=== PATIENT | female | born 1945 | race Caucasian/White ===

== ENCOUNTER 2023-11-24 17:06 | Emergency (ER) | payer MEDICARE, OTHER, SELFPAY ==
[2023-11-24 17:20] VITALS: BP 145/79; PULSE 74; RESP 18; TEMP 37.1; O2SAT 96; BMI 31.4
--- NOTE | 2023-11-24 17:26 | ED_ITS ---
HPI - General Adult General Chief complaint: Back Injury/Pain Stated complaint: lower back pain Time Seen by Provider: 11/24/23 17:19 History of Present Illness HPI narrative: Sunday pt had a fall and hit the door frame to her bathroom . Did not hit her head, no LOC. Slid down the wall gently onto her bottom. Pt reports bruise to RIGHT upper back. States pain wraps from back to side. Saw her chiropractor . Had increased pain when she got up yesterday. Reports chiropractor is concerned about rib fx. Pt states she wonders if it is her gallbladder or kidney. 78-year-old woman presenting to the emergency department 4 days after a slip- down fall. There was no loss of consciousness. She has managed to injure her upper back. Two days ago chiropractor was worried about a potential rib fracture. She is worried about maybe a gallbladder or kidney injury. Is not really short of breath, not pleuritic. Pain does wrap around the back to her side. No hematuria. Related Data Home Medications ?Medication ?Instructions ?Recorded ?Confirmed 5-hydroxytryptophan (5-HTP) PO 01/13/22 01/13/22 ascorbic acid (vitamin C) 250 mg 1 g PO Q6H 01/13/22 11/24/23 tablet calcium tab PO QDAY 01/13/22 01/13/22 carbonate,citrate-magnesium oxide 200 mg calcium-50 mg tablet multivitamin (Multiple Vitamins 1 tab PO QAM 01/13/22 11/24/23 tablet) Previous Rx's ?Medication ?Instructions ?Recorded lidocaine 4 % topical patch 1 patch topical DAILY PRN pain #15 11/24/23 ea Allergies Allergy/AdvReac Type Severity Reaction Status Date / Time codeine Allergy Mild Verified 11/24/23 17:07 penicillin V Allergy Mild Verified 11/24/23 17:07 HUCKEL BERRIES Allergy Mild Uncoded 01/13/22 09:38 Review of Systems Status of ROS: Reports: 6 or more systems reviewed and unremarkable except as noted in History and below [facility] Medical History Cataracts, bilateral ?H26.9 - Unspecified cataract (ICD-10) Depression ?F32.A - Depression, unspecified (ICD-10) Back pain ?M54.9 - Dorsalgia, unspecified (ICD-10) Osteoarthritis ?M19.90 - Unspecified osteoarthritis, unspecified site (ICD-10) Reflux esophagitis ?K21.00 - Gastro-esophageal reflux disease with esophagitis, without bleeding (ICD-10) Cataract (lens) fragments in eye following cataract surgery ?H59.029 - Cataract (lens) fragments in eye following cataract surgery, unspecified eye (ICD-10) Cataract ?H26.9 - Unspecified cataract (ICD-10) Surgical History (Updated 01/13/22 @ 10:20 by Joann Mayberry ~ [facility], [facility]) Knee joint replacement status ?Z96.659 - Presence of unspecified artificial knee joint (ICD-10) Hip joint replacement status ?Z96.649 - Presence of unspecified artificial hip joint (ICD-10) H/O colectomy ?Z90.49 - Acquired absence of other specified parts of digestive tract (ICD- 10) History of appendectomy ?Z90.49 - Acquired absence of other specified parts of digestive tract (ICD- 10) H/O removal of cyst ?Z98.890 - Other specified postprocedural states (ICD-10) Social History Smoking Status: Never smoker Do you use any of these nicotine containing products: None Second hand tobacco smoke exposure: No How often do you have a drink containing alcohol: never AUDIT-C Alcohol total score: 0 Non-prescribed substance use: denies use service: No Exam Narrative: Exam Narrative: Pleasant. Seems uncomfortable with transition. Breathing easily. Head is atraumatic. Neck is supple. Midline back nontender. Breath sounds throughout with equal expansion excursion of the chest pain Small bruising in the right chest and some dependent drift. Sore to palpation over the right mid thorax. No crepitus or deformity. Not tender to oppositional compression. Abdomen is soft and nontender. Const: Vital Signs, click to edit/add: Vital Signs - 24 hr 11/24/23 17:20 Temperature 98.8 F Pulse Rate [Pulse Oximeter] 74 Respiratory Rate 18 Blood Pressure [Ri ght Upper Arm] 145/79 H Pulse Oximetry 96 Oxygen Delivery Me thod Room Air Documenting provider has reviewed patient's vital signs: yes Course Vital Signs Vital signs: Initial Vital Signs Temperature 98.8 F 11/24/23 17:20 Temperature Source Temporal Artery Scan 11/24/23 17:20 Pulse Rate 74 11/24/23 17:20 Pulse Rhythm Regular 11/24/23 17:20 Pulse Strength 3+ Normal 11/24/23 17:20 Respiratory Rate 18 11/24/23 17:20 Blood Pressure 145/79 H 11/24/23 17:20 Blood Pressure Mean 101 11/24/23 17:20 Blood Pressure Position Sitting 11/24/23 17:20 Pulse Oximetry 96 11/24/23 17:20 Oxygen Delivery Method Room Air 11/24/23 17:20 Vital Signs Temperature 98.8 F 11/24/23 17:20 Pulse Rate 74 11/24/23 17:20 Respiratory Rate 18 11/24/23 17:20 Blood Pressure 145/79 H 11/24/23 17:20 Pulse Oximetry 96 11/24/23 17:20 Oxygen Delivery Method Room Air 11/24/23 17:20 Temperature 98.8 F 11/24/23 17:20 Pulse Rate 74 11/24/23 17:20 Respiratory Rate 18 11/24/23 17:20 Blood Pressure 145/79 H 11/24/23 17:20 Pulse Oximetry 96 11/24/23 17:20 Oxygen Delivery Method Room Air 11/24/23 17:20 Medications Administered Medications: Discontinued Medications Generic Name Dose Route Start Last Admin Trade Name Freq PRN Reason Stop Dose Admin Lidocaine 1 patch 11/24/23 17:44 11/24/23 18:05 Lidocaine 5% Patch TRANSDERMA 11/24/23 17:45 1 patch ONCE ONE Administration Protocol Medical Decision Making MDM Narrative Medical decision making narrative: Will image the right chest. Collect urinalysis to see if there might potentially be a secondary urinary tract infection or any indication of renal contusion but not having that degree of pain. I do not think there is a gallbladder issue here. Review of x-ray by me does not reveal any callus formation or rib fracture or certainly nothing displaced to create intrathoracic injury otherwise. I think there is at least a contusion here. Study:?XRay-Chest 2V RIBS W/ 1V CXR-11/24/2023 6:01:01 PM Ordering Physician:GARCIA Final Report: INDICATION: Provided history: Posttraumatic left thoracic back pain. COMPARISON: None available. TECHNIQUE: Three views of the right ribcage. FINDINGS: No definite acute displaced rib fracture of the right chest. A linear area of atelectasis is seen near the lung base. No definite pneumothorax or definite pleural effusion although there is minimal blunting of the costophrenic angle. IMPRESSION: No definite acute displaced rib fracture or pneumothorax of the right hemithorax. Did offer a rib binder. These are not available so placed an Leandro wrap. She did feel that there was some improvement in her symptoms. Also given lidocaine patch. Urinalysis unremarkable. See patient discharge plan for further discussion/plan Medical Records Medical records reviewed: Yes I reviewed the patient's medical records Lab Data Lab results reviewed: Yes I reviewed the patient's lab results Labs: Lab Results 11/24/23 Range/Units 17:49 Urine Color Yellow (Yellow) Urine Appearance Clear (Clear) Urine pH 7.5 (5.0-8.5) Ur Specific [place] 1.015 (1.000-1.030) Urine Protein Negative (Negative) Urine Glucose (UA) Negative (Negative) Urine Ketones Negative (Negative) Urine Blood Negative (Negative) Urine Nitrite Negative (Negative) Urine Bilirubin Negative (Negative) Urine Urobilinogen 0.2 (0.2-1.0) Ur Leukocyte Esterase Negative (Negative) Urine RBC 0-2 (0-2) Urine WBC 0-2 (0-5) Ur Squamous Epith Cells Few (None-Few) Urine Bacteria None (None) Discharge Plan Discharge Clinical Impression: Traumatic injury of rib Patient Disposition: Home w/ Parent or Adult Condition: Stable Additional Instructions: If it seems to help, I think it is fine to continue icing this sore area. If you do have pain that seems to be present under front right ribs particularly accompanied by nausea/vomiting, this might be more of an indication of gallbladder problem that might require further investigation. Temporarily and with a little food could take up to 800 mg of ibuprofen per dose. This could be combined also with up to 1000 mg of acetaminophen per dose. Alternative to the ibuprofen could be up to 500 mg of naproxen 2 times daily. If this lidocaine patch is helpful, you can purchase more of these [id number] if insurance does not cover. If this stress/Leandro wrap is helpful, a rib binder might also be helpful. Just remember that when you are wearing this chest binding of some sort, it is important to take a few deep breaths a few times a day to properly secondary social studies teacher lungs. If pain is simply not improving would consider follow-up for re-evaluation in 10-14 days from initial date of injury. Otherwise return for uncontrolled pain, persistent and increasing shortness of breath, associated fever. Prescriptions: New lidocaine 4 % adhesive patch,medicated 1 patch topical DAILY PRN (Reason: pain) Qty: 15 1RF No Action multivitamin [Multiple Vitamins] Tablet 1 tab PO QAM 5-hydroxytryptophan (5-HTP) PO calcium carb and citrat-mag ox 200 mg calcium- 50 mg tablet PO QDAY ascorbic acid (vitamin C) 250 mg tablet 1 g PO Q6H Follow Up/Referrals: Giulia Hu PA-C [Primary Care Provider] - Stand Alone Forms: MyHealth Info Instructions
--- NOTE | 2023-11-24 17:44 | XR_ITS ---
Patient: SLAVA RUTH Facility:?[facility] Patient ID:?[id number] Site Patient ID:?[id number]. Site :?[id number] Study:?XRay-Chest 2V RIBS W/ 1V CXR-11/24/2023 6:01:01 PM Ordering Physician:GARCIA Final Report: INDICATION: Provided history: Posttraumatic left thoracic back pain. COMPARISON: None available. TECHNIQUE: Three views of the right ribcage. FINDINGS: No definite acute displaced rib fracture of the right chest. A linear area of atelectasis is seen near the lung base. No definite pneumothorax or definite pleural effusion although there is minimal blunting of the costophrenic angle. IMPRESSION: No definite acute displaced rib fracture or pneumothorax of the right hemithorax. Dictated by Luis Mcmahon MD @ 11/24/2023 6:47:34 PM Signed by:?Luis Mcmahon MD @11/24/2023 6:47:40 PM (Electronic Signature)
[2023-11-24 17:57] LABS: Appearance Urine Clear (Clear); Bilirubin Urine Negative (Negative); Blood Urine Negative (Negative); Color Urine Yellow (Yellow); Glucose Urine Negative (Negative); Ketones Urine Negative (Negative); Leukocyte Esterase Urine Negative (Negative); Nitrite Urine Negative (Negative); Protein Urine Negative (Negative); Specific Gravity Urine 1.015 (1.000-1.030); Urobilinogen Urine 0.2 (0.2-1.0); pH Urine 7.5 (5.0-8.5)
[2023-11-24] MEDS: LIDOCAINE 5% PATCH 1 PATCH TRANSDERMA (18:05)
[2023-11-24 18:06] LABS: RBC Urine 0-2 (0-2); Squamous Epithelial Cell Urine Few (None-Few); WBC Urine 0-2 (0-5)
== END 2023-11-24 19:35 | disposition home or self-care (01) ==
PROVIDERS: Emergency Provider Family Medicine; PCP Physician Assistant Medical
DX: S29.9XXA Unspecified injury of thorax, initial encounter (principal); W01.0XXA Fall on same level from slipping, tripping and stumbling without subsequent striking against object, initial encounter
CPT/HCPCS: 71101; 81001; 99283; 99284; A9270

== ENCOUNTER 2024-02-23 10:34 | Emergency (ER) | payer MEDICARE, OTHER, SELFPAY ==
[2024-02-23 10:40] VITALS: BP 126/70; PULSE 82; RESP 18; TEMP 36.6; O2SAT 94; BMI 32.2
--- NOTE | 2024-02-23 11:13 | ED_ITS ---
HPI - General Adult General Chief complaint: Unspecified Complaint, Adult Stated complaint: Rash on ankle spread to leg Time Seen by Provider: 02/23/24 10:52 Source: patient Mode of arrival: ambulatory Limitations: no limitations History of Present Illness HPI narrative: 78-year-old female coming in today with a rash in the lower extremities, she is concerned that the rash is contagious as she is going to be around other people. She denies any systemic symptoms. No trauma to the lower extremities. She does state that about a week ago when this started she was at a [employer] or which she got multiple bug bites around the ankles. Ankles were pruritic. Related Data Home Medications ?Medication ?Instructions ?Recorded ?Confirmed 5-hydroxytryptophan (5-HTP) PO 01/13/22 01/13/22 ascorbic acid (vitamin C) 250 mg 1 g PO Q6H 01/13/22 11/24/23 tablet calcium tab PO QDAY 01/13/22 01/13/22 carbonate,citrate-magnesium oxide 200 mg calcium-50 mg tablet multivitamin (Multiple Vitamins 1 tab PO QAM 01/13/22 11/24/23 tablet) Previous Rx's ?Medication ?Instructions ?Recorded lidocaine 4 % topical patch 1 patch topical DAILY PRN pain #15 11/24/23 ea Allergies Allergy/AdvReac Type Severity Reaction Status Date / Time codeine Allergy Mild Verified 11/24/23 17:07 penicillin V Allergy Mild Verified 11/24/23 17:07 prednisolone Allergy Unknown Verified 02/23/24 10:49 HUCKEL BERRIES Allergy Mild Uncoded 01/13/22 09:38 Review of Systems Status of ROS: Reports: 10 or more systems reviewed and unremarkable except as noted in History and below [facility] Medical History Cataracts, bilateral ?H26.9 - Unspecified cataract (ICD-10) Depression ?F32.A - Depression, unspecified (ICD-10) Back pain ?M54.9 - Dorsalgia, unspecified (ICD-10) Osteoarthritis ?M19.90 - Unspecified osteoarthritis, unspecified site (ICD-10) Reflux esophagitis ?K21.00 - Gastro-esophageal reflux disease with esophagitis, without bleeding (ICD-10) Cataract (lens) fragments in eye following cataract surgery ?H59.029 - Cataract (lens) fragments in eye following cataract surgery, unspecified eye (ICD-10) Cataract ?H26.9 - Unspecified cataract (ICD-10) Surgical History Knee joint replacement status ?Z96.659 - Presence of unspecified artificial knee joint (ICD-10) Hip joint replacement status ?Z96.649 - Presence of unspecified artificial hip joint (ICD-10) H/O colectomy ?Z90.49 - Acquired absence of other specified parts of digestive tract (ICD- 10) History of appendectomy ?Z90.49 - Acquired absence of other specified parts of digestive tract (ICD- 10) H/O removal of cyst ?Z98.890 - Other specified postprocedural states (ICD-10) Social History Smoking Status: Never smoker Do you use any of these nicotine containing products: None Second hand tobacco smoke exposure: No How often do you have a drink containing alcohol: never AUDIT-C Alcohol total score: 0 Non-prescribed substance use: denies use service: No Exam Narrative: Exam Narrative: Well-nourished well-developed patient in no acute distress. Alert and oriented. Answers questions appropriately. Mood and affect are appropriate. Thoughts ar e goal oriented and rational. Patient speaks in full sentences without needing to catch their breath. The patient does not appear ill or toxic. HEENT: Normocephalic atraumatic. Pupils are equally round reactive to light. Extraocular muscles are intact. Conjunctivae are moist without any icterus noted. Moist mucous membranes. Extremities: Patient has a petechial rash around both ankles. Many of the petechia are in linear distribution hand. There is no edema, erythema or other evidence of infection. Rash is not painful. Const: Vital Signs, click to edit/add: Vital Signs - 24 hr 02/23/24 10:40 Temperature 97.9 F Pulse Rate [Right Pulse Oximeter] 82 Respiratory Rate 18 Blood Pressure [Ri ght Upper Arm] 126/70 Pulse Oximetry 94 Oxygen Delivery Me thod Room Air Course Vital Signs Vital signs: Initial Vital Signs Temperature 97.9 F 02/23/24 10:40 Temperature Source Temporal Artery Scan 02/23/24 10:40 Pulse Rate 82 08/17/24 10:40 Pulse Rhythm Regular 02/23/24 10:40 Pulse Strength 3+ Normal 02/23/24 10:40 Respiratory Rate 18 02/23/24 10:40 Blood Pressure 126/70 02/23/24 10:40 Blood Pressure Mean 88 02/23/24 10:40 Blood Pressure Position Sitting 02/23/24 10:40 Pulse Oximetry 94 02/23/24 10:40 Oxygen Delivery Method Room Air 02/23/24 10:40 Vital Signs Temperature 97.9 F 02/23/24 10:40 Pulse Rate 82 02/23/24 10:40 Respiratory Rate 18 02/23/24 10:40 Blood Pressure 126/70 02/23/24 10:40 Pulse Oximetry 94 02/23/24 10:40 Oxygen Delivery Method Room Air 02/23/24 10:40 Temperature 97.9 F 02/23/24 10:40 Pulse Rate 82 02/23/24 10:40 Respiratory Rate 18 02/23/24 10:40 Blood Pressure 126/70 02/23/24 10:40 Pulse Oximetry 94 02/23/24 10:40 Oxygen Delivery Method Room Air 02/23/24 10:40 Medical Decision Making MDM Narrative Medical decision making narrative: 78-year-old female with petechial rash. We discussed doing some blood work today but the patient feels that this is not necessary. We discussed the possibility of aggressive scratching as a source of the petechial rash. If she does not notice that this is getting better I do recommend she follow up with her primary care provider Discharge Plan Discharge Clinical Impression: Petechial rash Patient Disposition: Home, Self-Care Condition: Stable Additional Instructions: Your rash is called a petechial rash, caused by broken blood vessels. There are many causes for this including aggressive scratching for all blood which can be what caused your rash given the distribution of the petechia and your recent bug bites. If you feel like your rashes spreading instead of getting better over the next couple weeks you do need to follow-up with your primary care provider to discuss other causes of a petechial rash. This rash is not contagious. There are no creams that will make it better. Prescriptions: No Action multivitamin [Multiple Vitamins] Tablet 1 tab PO QAM 5-hydroxytryptophan (5-HTP) PO calcium carb and citrat-mag ox 200 mg calcium- 50 mg tablet PO QDAY ascorbic acid (vitamin C) 250 mg tablet 1 g PO Q6H lidocaine 4 % adhesive patch,medicated 1 patch topical DAILY PRN (Reason: pain) Qty: 15 1RF Follow Up/Referrals: Giulia Hu PA-C [Primary Care Provider] - Stand Alone Forms: MyHealth Info Instructions
--- OUTSIDE RECORDS SUMMARY | 2024-02-23 11:29 | XMS_ITS | Clinical Summary ---
Author Organization [facility] Address [place], [place] [address] Care Team Providers Care Research Engineer Marine Equipment Name Role Phone Joe Shen Unavailable Noman Jerez Unavailable Unavailable Giulia Hu Primary Care Provider Allergies Active Allergy Reactions Criticality Noted Date Comments Codeine 06/13/2007 Penicillins Hives 06/13/2007 Prednisolone Hives,Vomiting 12/10/2014 Azithromycin Palpitations 05/04/2014 Medications Medication Sig Dispensed Refills Start Date End Date Status Eyzru-0-LVE-EPA-Fis h Oil 1,000 (120-180) mg cap Take one capsule by mouth once daily. 1 capsule 0 12/12/2012 Active coenzyme q10 (CO Q-10) 100 mg cap Take 1 capsule by mouth once daily. 0 12/12/2012 Active medication order composer Susan-40 Billion cells, 1 in the am before meals 0 12/12/2012 Active Cholecalciferol, Vitamin D3, (VITAMIN D-3) 5,000 unit tab Take by mouth once daily. 0 08/28/2014 Active vitamin e 400 unit capsule Take 1 capsule by mouth once daily. 0 08/28/2014 Active medication order composer 5 HTP 200 mg 0 08/28/2014 Active medication order composer Ionic trace minerals drops, take 1/2 teaspoon daily 0 Active medication order composer HP [place] Adrenal support 0 08/06/2019 Active medication order composer Selenium complex 200 mcg daily 0 08/06/2019 Active medication order composer Enzymes HCI 0 08/06/2019 Active medication order composer Glutathione Geologist (K-57) 0 08/06/2019 Active medication order composer OMNI essentials w/o iron 0 08/06/2019 Active medication order composer Magnezyme ( naturally chelated Magnesium) 0 08/06/2019 Active medication order composer Neurolink 0 08/06/2019 Active meclizine (ANTIVERT) 25 mg tabletIndications:B enign paroxysmal positional vertigo, unspecified laterality Take 1 Tablet (25 mg) by mouth 3 times daily if needed for Vertigo. 30 Tablet 07/15/2021 Active zolpidem (AMBIEN) 5 mg tabletIndications:O ther insomnia Take 1 Tablet (5 mg) by mouth at bedtime if needed for Sleep. 30 Tablet 06/12/2023 Active Active Problems Problem Noted Date Diagnosed Date Depression, major, single episode, moderate 12/07 Hiatal hernia 05/07/2018 Overview: EGD 12/2013, 2 cm hiatal hernia Epiretinal membrane 10/27/2014 Osteoporosis 08/28/2014 Insomnia 06/23/2014 Interstitial cystitis 01/23/2014 Overview: Bladder spasms Routine adult health maintenance 01/21/2014 Overview: Colonoscopy 01/2014 normal, no follow up is needed Anxiety state, unspecified 02/18/2009 Dysthymic disorder 06/13/2007 Overview: Depression Resolved Problems Problem Noted Date Diagnosed Date Resolved Date Cataract 11/19/2014 02/11/2015 Overview: Both eyes Cataract 10/27/2014 02/11/2015 Peroneal tendinosis left ankle 06/16/2013 04/27/2014 Tendinosis 07/06/2011 06/16/2013 Overview: Left ankle: involving tibialis posterior tendon at and just distal to tip medial malleolus. 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 medial corner talar dome MR on 04/26/11 Encounters Date Type Department Care Team Description 02/11/2024 Telephone [facility] [address] [place] [address] Giulia Hu PA Questions (labs) 01/17/2024 Orders Only [facility] Scanner 1 scan: (1-Ord) RCM 12/19/2023 2:15 PM CDT Ancillary Procedure [facility] [address] [place] [address] 12/19/2023 1:20 PM CDT Office Visit [facility] [address] [place] [address] Giulia Hu PA Fall (Bumped into a wall and fell, has pain around L rib and breast area) 12/19/2023 Travel 12/14/2023 Telephone [facility] [address] [place] [address] Giulia Hu PA Questions 12/13/2023 Nurse Triage [facility] [address] [place] [address] Giulia Hu PA Chest Pain 11/24/2023 Orders Only [facility] Scanner 1 scan: (1-Ord) [place] [facility], XR RIBS RIGHT MIN 3V W/CXR 1V, 11/24/2023 from Last 3 Months Immunizations Name Administration Dates Next Due COVID-19 vaccine (iSOCO 30mcg/0.3mL) P F, MDV 09/28/2020,09/07/2020 Td (Age >=7 Years) 06/16/1997 Family History Medical History Relation Name Comments Alcohol/Drug Brother 2 Arthritis Father Cancer Father leukemia Heart Disease Father bypass Cancer-colon Maternal Grandfather Arthritis Mother Hypertension Mother Cancer-colon Other cousin Diabetes Other Strong family H X Other Paternal Grandfather melanom a Alcohol/Drug Sister 1 Heart Disease Sister 2 sister who dri nks also has palpitations Alcohol/Drug Son 2 Cancer-breast No Family History Cancer-ovarian No Family History Relation Name Status Comments Brother 1 (Age 56) complicati ons from flu vaccine Brother 2 Father Maternal Grandfather Mother Other Paternal Grandfather Sister 1 Sister 2 Son 1 1990, committed suicide Son 2 Social History Tobacco Use Types Packs/Day Years Used Date Smoking Tobacco: Never Smokeless Tobacco: Never Tobacco Cessation:Counseling Given: Yes Alcohol Use Standard Drinks/Week Comments Not Currently 0 (1 standard drink = 0.6 oz pure alcohol) has not drank in 1 year noted 10/02/23 PHQ-2 Answer Date Recorded PHQ-2 TOTAL SCORE 4 09/21/2023 Social Connections Answer Date Recorded Frequency of Communication with Friends and Fami ly Not on file 07/09/2021 Financial Resource Strain Answer Date R ecorded Difficulty of Paying Living Expenses Not on file 07/09/2021 Difficulty of Paying Living Expenses Not on file 07/09/2021 Sex and Gender Information Value Date Recorded Sex Assigned at Not on file Gender Identity Not on file Sexual Orientation Not on file Obstetrics History Para Term AB IAB SAB Ectopic Multiple Livin g Live Births 3 3 2 Date Outcome GA Total Labor Labor/2nd/3rd Weight Sex Type Anes PTL Francesca A1 A5 Name Clin Para Para Para Last Filed Vital Signs Vital Sign Reading Time Taken Comments Blood Pressure 125/80 12/19/2023 1:33 PM CDT Pulse 68 12/19/2023 1:33 PM CDT Temperature 37.1 ??C (98.7 ??F) 03/18/2022 4:38 PM CD T Respiratory Rate 16 03/18/2022 4:38 PM CDT Oxygen Saturation 97% 10/30/2023 1:18 PM CDT Inhaled Oxygen Concentration - - Weight 75.3 kg (166 lb) 12/19/2023 1:33 PM CDT Height 154 cm (5' 0.63) 02/12/2023 12:46 PM CDT Body Mass Index 31.75 02/12/2023 12:46 PM CDT Plan of Treatment Upcoming Encounters Date Type Department Care Team (Late st Contact Info) Description 03/05/2024 10:30 AM CDT Office Visit [facility] [address] [place] [address] Giulia Hu PA [address] [place] [address] Health Maintenance Due Date Last Done Comments Tdap 1956 Hepatitis C screening for ag e -79 1962 Zoster (shingles) series for age 50+ (1 of 2) 1994 Pneumococcal series for age 65+ (1 of 1 - PCV) 2009 Tetanus booster 08/16/2021 08/16/2011 (Decl ined), 06/16/1997 COVID-19 vaccine series (7 2022-24 season) 2023 05/30/2023, 06/19/2022, 10/28/2021, Additional history exists BMI (ht and wt on same day) for age 18+ 02/13/2024 02/12/2023, 03/18/2022, 12/21/2021, Additional history exists Medicare Wellness for age 65+ 02/13/2024, 12/21/2021, 12/14/2020, Additional history exists Influenza for age 65+ 03/09/2024 Depression screening for age 12+ 09/20/2024 09/21/2023, 02/12/2023, 12/23/2021, Additional history exists DEXA/DXA scan for age 65+ Completed 2017, 08/20/2014, 05/14/2012, Additional history exists Medical Devices Implanted Type Area Logistics Assistant Device Identifier Shelf Expiration Date Model / Serial / Lot Lens Iol Zct 300 Dptr 14.5 - [id number] Implanted:Qty: 1 on 11/26/2014 by Andrade Shrestha MD at [facility] Left: Eye [employer] 01/26/2017 [id number]# / [id number] / Lens Iol Zct 300 Dptr 14.5 - [id number] Implanted:Qty: 1 on 12/10/2014 by Andrade Shrestha MD at [facility] Right: Eye [employer] 01/09/2017 [id number]# / [id number] / Procedures Procedure Name Priority Date/Time Associated Diagnosis Comments SCAN-EYE EXAM 01/17/2024 12:00 AM CDT XR RIBS LEFT AND PA CHEST MINIMUM 3 VIEWS Routine 12/19/2023 2:24 PM CDT Rib pain SCAN-RADIOLOGY REPORT 11/24/2023 12:00 AM CDT XR DXA BONE DENSITY 2 SITES AXIAL Routine 02/18/2018 2:13 PM CDT Osteoporosis, unspecified osteoporosis type, unspecified pathological fracture presence from Last 3 Months or Most Recently Relevant to Health Maintenance Results * SCAN-EYE EXAM (01/17/2024 12:00 AM CDT) Scanner OTHER * XR RIBS LEFT AND PA CHEST MINIMUM 3 VIEWS (12/19/2023 2:24 PM CDT) Anatomical Region Laterality Modality RIBS, RIBS L, CHEST Computed Rad iography 12/20/2023 2:55 PM CDT Impressions 12/20/2023 2:55 PM CDT Slight fibrosis or atelectasis at the lung bases. No acute displaced left-sided rib fracture identified. Dictated by Noman Samayoa MD @ 12/20/2023 2:55:56 PM (Electronically Signed) Narrative 12/20/2023 2:55 PM CDT For Patients: ??As a result of the Cures Act, medical imaging exams and procedure reports are released immediately into your electronic medical record. ??You may view this report before your referring provider. ??If you have questions, please contact your health care provider. INDICATION: Trauma. Fall. Left rib and breast pain. TECHNIQUE: PA chest and 2 detailed views of the left-sided ribs. COMPARISON: May 07, 2018. FINDINGS: Both lungs are expanded without pneumothoraces or infiltrates. Minimal bibasilar fibrosis or atelectasis. No focal infiltrate. Normal heart size. No pleural effusion. Detailed views of the left-sided ribs are within normal limits. No acutely displaced rib fractures are identified. Nondisplaced rib fractures can be overlooked on plain radiography. Procedure Note Noman Samayoa MD - 12/20/2023 For Patients: As a result of the Cures Act, medical imagingexams and procedure reports are released immediately into your electronicmedical record. You may view this report before your referring provider.If you have questions, please contact your health care provider. INDICATION: Trauma. Fall. Left rib and breast pain. TECHNIQUE: PA chest and 2 detailed views of the left-sided ribs. COMPARISON: May 07, 2018. FINDINGS: Both lungs are expanded without pneumothoraces or infiltrates. Minimalbibasilar fibrosis or atelectasis. No focal infiltrate. Normal heart size.No pleural effusion. Detailed views of the left-sided ribs are within normal limits. No acutelydisplaced rib fractures are identified. Nondisplaced rib fractures can beoverlooked on plain radiography. IMPRESSION: Slight fibrosis or atelectasis at the lung bases. No acute displacedleft-sided rib fracture identified. Dictated by Noman Samayoa MD @ 12/20/2023 2:55:56 PM (Electronically Signed) [facility] * SCAN-RADIOLOGY REPORT (11/24/2023 12:00 AM CDT) Anatomical Region Laterality Modality Other Scanner OTHER * (ABNORMAL) XR DXA BONE DENSITY 2 SITES AXIAL (02/18/2018 2:13 PM CDT) Anatomical Region Laterality Modality Spine, HIPS, HIPL, HIPR Other Narrative 02/19/2018 5:41 PM CDT Please see scanned document for results of this study. Yenni Vega NP DEXA from Last 3 Months or Most Recently Relevant to Health Maintenance Advance Directives Documents on File Type Date Recorded Patient Meter Attendant Expl anation Healthcare Directive 12/02/2014 6:35 PM 25 NOV 2014 * Full Code (Latest Code Status on File) Date Activated Date Inactivated Comments 12/10/2014 12:29 PM 12/10/2014 4:23 PM * Full Code Date Activated Date Inactivated Comments 11/26/2014 1:05 PM 11/26/2014 5:33 PM Care Teams Research Engineer Marine Equipment Relationship Specialty Start Date End Date Giulia Hu PA [address] [place] [address] PCP - General Physician Wafer Mounter 08/05/18 Joe Shen [address] [place] [address] [place] [address] Moving Picture Producer 03/13/13 Noman Jerez [facility] [address] [place] [address] Dentistry - General 06/22/16
== END 2024-02-23 11:31 | disposition home or self-care (01) ==
LOC: ED 11:27
PROVIDERS: Emergency Provider Family Medicine; PCP Physician Assistant Medical
DX: R21 Rash and other nonspecific skin eruption (principal)
CPT/HCPCS: 99283

== ENCOUNTER 2024-07-04 02:06 | Emergency (ER) | payer MEDICARE, OTHER, SELFPAY ==
--- NOTE | 2024-07-04 02:15 | CRLHL7_ITS ---
For Patients: As a result of the Century Cures Act, medical imaging exams and procedure reports are released immediately into your electronic medical record. You may view this report before your referring provider. If you have questions, please contact your health care provider. Indication: Headache Technique: Noncontrast CT through the head with multiplanar reformats Comparison: CT head performed 03/30/2013 Findings: Brain: No acute hemorrhage. No acute infarct. No significant mass effect or midline shift. No gross evidence of a mass lesion or cerebral edema. Mild chronic microvascular ischemic disease. Moderate global parenchymal volume loss. Ventricles: No acute abnormality appreciated. Orbits, sinuses, mastoids: No acute abnormality appreciated. Calvarium and soft tissues: No acute abnormality appreciated. Impression: No acute abnormality appreciated. Please note that all CT scans at this facility use dose modulation, iterative reconstruction, and/or weight-based dosing when appropriate to reduce radiation dose to as low as reasonably achievable. Dictated by Brice Gonzalez MD @ 07/04/2024 2:40:38 AM (Electronically Signed)
[2024-07-04 02:16] VITALS: BP 146/82; PULSE 72; RESP 18; TEMP 36.8; O2SAT 99; BMI 31.2
[2024-07-04 03:26] LABS: Basophils Percent Auto 0.5 % (0.0-3.0); Eosinophils Percent Auto 1.2 % (0.0-7.0); Hemoglobin* 15.1 gm/dL (12.0-16.0); Lymphocytes Percent Auto 30.4 % (20-44); Mean Corpuscular HGB Conc 33 gm/dL (32-36); Mean Corpuscular Hemoglobin 31 pg (26-34); Mean Corpuscular Volume 95 fL (80-100); Monocytes Percent Auto 8.9 % (0.0-11.0); Neutrophils Percent Auto 58.2 % (42.0-72.0); Platelet Count* 198 K/uL (140-440); RDW Coefficient of Variation % 12.5 % (11.5-15.5); Red Blood Count 4.86 m/uL (4.00-5.20); White Blood Count* 6.08 K/uL (4.50-11.00)
[2024-07-04 03:27] LABS: Basophils Absolute Auto 0.03 K/uL (0.00-0.30); Eosinophils Absolute Auto 0.07 K/uL (0.00-0.50); Immature Granulocytes Abs Auto 0.05 K/uL (0.00-0.30); Immature Granulocytes Pct Auto 0.8 %; Lymphocytes Absolute Auto 1.85 K/uL (0.90-2.90); Neutrophils Absolute Auto 3.54 K/uL (1.7-7.0)
[2024-07-04 03:31] LABS: Slide Review Reflex No
[2024-07-04 03:41] LABS: Chloride* 104 mmol/L (96-114)
[2024-07-04 03:42] LABS: Albumin* 4.2 g/dL (3.3-5.0); Potassium* 4.7 mmol/L (3.6-5.1); Sodium* 136 mmol/L (135-149)
[2024-07-04 03:45] LABS: Alanine Aminotransferase* 17 U/L (4-35); Alkaline Phosphatase* 97 U/L (40-150); Anion Gap 6 mEq/L (7-15); Aspartate Amino Transferase* 22 U/L (12-35); Bilirubin Direct* 0.3 mg/dL (0.0-0.5); Bilirubin Total* 0.7 mg/dL (0.1-1.5); Blood Urea Nitrogen* 16 mg/dL (7-30); Calcium* 9.8 mg/dL (8.4-10.6); Carbon Dioxide* 26 mmol/L (20-32); Est. Creatinine Clearance* 32.23; Estimated Glomerular Filt Rate 57 ml/min; Glucose* 107 mg/dL (60-115); Total Protein* 6.7 g/dL (6.0-8.3)
--- NOTE | 2024-07-04 04:10 | ED.GENADULT ---
HPI - General Adult General Date Seen: 07/04/24 Chief complaint: Headache/Migraine Stated complaint: Headache, nausea, concerned about stroke Time Seen by Provider: 07/04/24 02:34 Source: patient and family Mode of arrival: ambulatory Limitations: no limitations History of Present Illness HPI narrative: Patient is an 79-year-old female who comes in at about 2:30 a.m. with concerns that she might be having a stroke. She does not normally drink alcohol but did have a [employer] this evening. Shortly after that she developed a headache and some nausea. When she was walking from her bed into the bathroom she felt a little unsteady and thought that she might be having a stroke. She had a physical last month with normal lab work. She is normally quite physically active. She takes no medications regularly. She tells me numerous times that she has a practitioner of [facility] and is very in tune with her body and experiences symptoms earlier than most people. 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 Nothing black or bloody. No vertigo or lightheadedness. She never actually vomited. She felt that it was a struggle to put her words together. Her states that her speech was never slurred. No difficulty swallowing. No blurry vision. No numbness or weakness of her arms or legs. She has never had a feeling like this before. While she was in CT she began noticing some perioral tingling consistent with hyperventilation. Related Data Home Medications ?Medication ?Instructions ?Recorded ?Confirmed ascorbic acid (vitamin C) 250 mg 1 g PO Q6H 01/13/22 07/04/24 tablet multivitamin (Multiple Vitamins 1 tab PO QAM 01/13/22 07/04/24 tablet) Previous Rx's ?Medication ?Instructions ?Recorded lidocaine 4 % topical patch 1 patch topical DAILY PRN pain #15 11/24/23 ea Allergies Allergy/AdvReac Type Severity Reaction Status Date / Time codeine Allergy Mild Verified 07/04/24 02:18 penicillin V Allergy Mild Verified 07/04/24 02:18 prednisolone Allergy Unknown Verified 07/04/24 02:18 HUCKEL BERRIES Allergy Mild Uncoded 01/13/22 09:38 Review of Systems Narrative: Review of systems is outlined above otherwise noted to be negative. PFSH [facility] Medical History Cataracts, bilateral ?H26.9 - Unspecified cataract (ICD-10) Depression ?F32.A - Depression, unspecified (ICD-10) Back pain ?M54.9 - Dorsalgia, unspecified (ICD-10) Osteoarthritis ?M19.90 - Unspecified osteoarthritis, unspecified site (ICD-10) Reflux esophagitis ?K21.00 - Gastro-esophageal reflux disease with esophagitis, without bleeding (ICD-10) Cataract (lens) fragments in eye following cataract surgery ?H59.029 - Cataract (lens) fragments in eye following cataract surgery, unspecified eye (ICD-10) Cataract ?H26.9 - Unspecified cataract (ICD-10) Surgical History Knee joint replacement status ?Z96.659 - Presence of unspecified artificial knee joint (ICD-10) Hip joint replacement status ?Z96.649 - Presence of unspecified artificial hip joint (ICD-10) H/O colectomy ?Z90.49 - Acquired absence of other specified parts of digestive tract (ICD-10) History of appendectomy ?Z90.49 - Acquired absence of other specified parts of digestive tract (ICD-10) H/O removal of cyst ?Z98.890 - Other specified postprocedural states (ICD-10) Social History Smoking Status: Never smoker Do you use any of these nicotine containing products: None Second hand tobacco smoke exposure: No How often do you have a drink containing alcohol: never AUDIT-C Alcohol total score: 0 Non-prescribed substance use: denies use service: No Exam Narrative: Exam Narrative: Vitals noted. HEENT: Conjunctiva clear. Tympanic membranes are pearly white bilaterally. Posterior pharynx is clear without erythema or exudate. Neck is supple without adenopathy, thyromegaly, carotid bruit. Lungs: Clear to auscultation in all soto. No wheezes, rales, rhonchi. Heart: Regular rate and rhythm without murmur. Abdomen: Soft and nontender. No guarding, rigidity, rebound. Bowel sounds are normal. No palpable masses. Extremities: No cyanosis or edema. Good distal pulses. Skin: No abnormalities noted of the exposed skin. Neurologic: Awake, alert, fully oriented. Neurologic exam is nonfocal. Her gait is steady. Cranial nerves 3-12 are intact. Normal strength and sensation. Fine finger movements, rapid alternating movements are normal. No pronator drift. Const: Vital Signs, click to edit/add: Vital Signs - 24 hr 07/04/24 02:16 Temperature 98.2 F Pulse Rate [Right Pulse Oximeter] 72 Respiratory Rate 18 Blood Pressure [Ri ght Upper Arm] 146/82 H Pulse Oximetry 99 Oxygen Delivery Me thod Room Air Course Course ED Course: Patient seen and examined. CT of the head without contrast is normal. CBC, BMP, LFTs, TSH are all normal. Vital Signs Vital signs: Initial Vital Signs Temperature 98.2 F 07/04/24 02:16 Temperature Source Temporal Artery Scan 07/04/24 02:16 Pulse Rate 72 07/04/24 02:16 Respiratory Rate 18 07/04/24 02:16 Blood Pressure 146/82 H 07/04/24 02:16 Blood Pressure Mean 103 07/04/24 02:16 Blood Pressure Position Sitting 07/04/24 02:16 Pulse Oximetry 99 07/04/24 02:16 Oxygen Delivery Method Room Air 07/04/24 02:16 Vital Signs Temperature 98.2 F 07/04/24 02:16 Pulse Rate 72 07/04/24 02:16 Respiratory Rate 18 07/04/24 02:16 Blood Pressure 146/82 H 07/04/24 02:16 Pulse Oximetry 99 07/04/24 02:16 Oxygen Delivery Method Room Air 07/04/24 02:16 Temperature 98.2 F 07/04/24 02:16 Pulse Rate 72 07/04/24 02:16 Respiratory Rate 18 07/04/24 02:16 Blood Pressure 146/82 H 07/04/24 02:16 Pulse Oximetry 99 07/04/24 02:16 Oxygen Delivery Method Room Air 07/04/24 02:16 Medical Decision Making Lab Data Labs: Lab Results 07/04/24 Range/Units 03:22 WBC 6.08 (4.50-11.00) K/uL RBC 4.86 (4.00-5.20) m/uL Hgb 15.1 (12.0-16.0) gm/dL Hct 46.0 (33.0-51.0) % MCV 95 (80-100) fL MCH 31 (26-34) pg MCHC 33 (32-36) gm/dL RDW Coeff of Veronica 12.5 (11.5-15.5) % Plt Count 198 (140-440) K/uL Neut % (Auto) 58.2 (42.0-72.0) % Lymph % (Auto) 30.4 (20-44) % [place] % (Auto) 8.9 (0.0-11.0) % Eos % (Auto) 1.2 (0.0-7.0) % Baso % (Auto) 0.5 (0.0-3.0) % Neut # (Auto) 3.54 (1.7-7.0) K/uL Lymph # (Auto) 1.85 (0.90-2.90) K/uL [place] # (Auto) 0.50 (0.00-0.90) K/UL Eos # (Auto) 0.07 (0.00-0.50) K/uL Baso # (Auto) 0.03 (0.00-0.30) K/uL Abs Immat Gran (auto) 0.05 (0.00-0.30) K/uL Imm/Tot Granulo (auto) 0.8 % Sodium 136 (135-149) mmol/L Potassium 4.7 (3.6-5.1) mmol/L Chloride 104 (96-114) mmol/L Carbon Dioxide 26 (20-32) mmol/L Anion Gap 6 L (7-15) mEq/L BUN 16 (7-30) mg/dL Creatinine 1.0 (0.5-1.5) mg/dL Estimated Creat Clear 32.23 Estimated GFR 57 ml/min Glucose 107 (60-115) mg/dL Calcium 9.8 (8.4-10.6) mg/dL Total Bilirubin 0.7 (0.1-1.5) mg/dL Direct Bilirubin 0.3 (0.0-0.5) mg/dL AST 22 (12-35) U/L ALT 17 (4-35) U/L Alkaline Phosphatase 97 (40-150) U/L Total Protein 6.7 (6.0-8.3) g/dL Albumin 4.2 (3.3-5.0) g/dL Discharge Plan Discharge Clinical Impression: Headache, Nausea Patient Disposition: Home, Self-Care Condition: Stable Additional Instructions: Clear liquids in frequent small amounts, advance diet slowly as tolerated, Tylenol for headache. Return to the emergency department for any neurologic symptoms such as numbness, weakness, slurred speech, difficulty swallowing, gait unsteadiness. Follow-up with your PCP next week if any symptoms persist. Your tests here are all very reassuring. Activity Level: No Restrictions Discharge Diet: Regular Prescriptions: No Action multivitamin [Multiple Vitamins] Tablet 1 tab PO QAM ascorbic acid (vitamin C) 250 mg tablet 1 g PO Q6H lidocaine 4 % adhesive patch,medicated 1 patch topical DAILY PRN (Reason: pain) Qty: 15 1RF Follow Up/Referrals: Giulia Hu PA-C [Primary Care Provider] - Stand Alone Forms: TeleFlip Info Instructions
[2024-07-04 04:55] LABS: TSH With Reflex to FT4* 0.271 uIU/mL (0.270-4.200)
== END 2024-07-04 04:16 | disposition home or self-care (01) ==
PROVIDERS: Emergency Provider Family Medicine; PCP Physician Assistant Medical
DX: R51.9 Headache, unspecified (principal); R11.0 Nausea
CPT/HCPCS: 36415; 70450; 80048; 80076; 84443; 85025; 99282; 99283; 99284